=== PATIENT | female | born 1945 | race Caucasian/White ===

== ENCOUNTER 2021-01-19 11:30 | Outpatient (CLI) | payer MEDICARE, OTHER | END 2021-01-19 23:59 | disposition home or self-care (01) | LOC: LAB.N 11:30 | PROVIDERS: ATTEND Family Medicine | DX: R07.0 Pain in throat (principal); Z20.822 Contact with and (suspected) exposure to COVID-19 ==

== ENCOUNTER 2021-02-09 11:10 | Outpatient (CLI) | payer MEDICARE ==
--- NOTE | 2021-02-23 13:21 | Mammography Report ---
BILATERAL DIGITAL SCREENING MAMMOGRAM 3D/2D: 02/09/2021 CLINICAL: Routine screening. Comparison is made to exam dated: 02/21/2016 mammogram - [facility]. There are scattere d fibroglandular elements in both breasts. No significant masses, calcifications, or other findings are seen in either breast. There has been no significant interval change. IMPRESSION: NEGATIVE There is no mammographic evidence of malignancy. A 1 year screening mammogram is recommended. This exam was interpreted at Station ID: [id number]. NOTE: For mammograms, a report in lay terms will be sent to the patient. Approximately 15% of breast malignancies will not be visualized mammographically. In the management of a palpable breast mass, a negative mammogram must not discourage biopsy of a clinically suspicious lesion. Electronically Signed By: Myriam larson/nathalie:02/22/2021 17:20:55 ACR BI-RADS Category 1: Negative 3341F PARENCHYMAL PATTERN: (A) - The breast(s) demonstrate(s) scattered fibroglandular densities. BI-RADS CATEGORY: (1) - 1 RECOMMENDATION: (ANNUAL) - Recommend routine annual screening mammography. [id number] 1 year screening LATERALITY: (B)
== END 2021-02-09 11:11 | disposition home or self-care (01) ==
LOC: DI.N 11:10
DX: Z12.31 Encounter for screening mammogram for malignant neoplasm of breast (principal)

== ENCOUNTER 2021-10-05 12:39 | Outpatient (CLI) | payer MEDICARE ==
--- NOTE | 2021-10-05 17:29 | DEXA Report ---
PROCEDURE: Dexa Spine and/or Hip INDICATIONS: POST MENOPAUSAL TECHNIQUE: Dual energy x-ray absorptiometry (DXA) was performed on a [employer] System. Regions measur ed are the AP Spine, femoral neck, and if needed forearm. COMPARISON: None. FINDINGS: Lumbar Spine: Bone Mineral Density 1.395 g/cm/cm,T score 1.8, normal Left Hip: Bone Mineral Density 1.012 g/cm/cm,T score 0.0, normal Left Femoral Neck: Bone Mineral Density 1.010 g/cm/cm, T score -0.2, normal (T score greater or equal to -1.0: NORMAL) (T score from -1.1 to -2.4: OSTEOPENIA) (T score less than or equal to -2.5 to: OSTEOPOROSIS) Impression: Normal bone mineral density. Patients with diagnosis of osteoporosis or osteopenia should have regular bone mineral density assess ment. For those eligible for Medicare, routine testing is allowed once every 2 years. Testing frequ ency can be increased for patients who have rapidly progressing disease or for those who are receivin g medical therapy to restore bone mass. Reviewed by: Madyson Dsouza MD, PhD on 10/05/2021 5:27 PM PDT Approved by: Madyson Dsouza MD, PhD on 10/05/2021 5:27 PM PDT Station ID: [id number]
== END 2021-10-05 12:40 | disposition home or self-care (01) ==
LOC: DI 12:39
PROVIDERS: ATTEND Internal Medicine
DX: Z78.0 Asymptomatic menopausal state (principal)

== ENCOUNTER 2022-12-06 17:22 | Emergency (ER) | payer MEDICARE ==
[2022-12-06] MEDS ORDERED: SODIUM CHLORIDE 0.9% 1,000 ML IV STA (18:11)
--- NOTE | 2022-12-06 18:13 | ED Physician Documentation ---
History of Present Illness - Stated complaint Stated Complaint: VOMITING - Chief complaint Chief Complaint: General - History obtained from History obtained from: Patient - Additonal information Additional information: 77-year-old woman with longstanding type 2 diabetes treated with metformin, hypertension, hyperlipidemia. For the last 3 months she has been dealing with heartburn that is generally getting worse and now for the last 3 weeks she vomits after she eats. She vomits just a couple of minutes after she eats. It is more phlegm than food products. She has had a little bit of unquantified weight loss with this. She saw her physician and has a pending referral for consultation for potential upper GI, but that is not for 2 weeks. 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 - Present Medications Home Medications: Ambulatory Orders Medication Instructions Recorded Confirmed Atorvastatin Calcium 20 mg PO DAILY 12/06/22 12/06/22 Metoclopramide [Reglan] 10 mg PO Q6H PRN #20 tablet 12/06/22 lisinopriL [Lisinopril] 10 mg PO DAILY 12/06/22 12/06/22 metFORMIN [Glucophage] 500 mg PO DAILY 12/06/22 12/06/22 - Allergies Allergies/Adverse Reactions: Allergies Allergy/AdvReac Type Severity Reaction Status Date / Time No Known Drug Allergies Allergy Verified 12/06/22 17:43 - Social History Does the pt smoke?: No Smoking Status: Never smoker Does the pt drink ETOH?: No Does the pt have substance abuse?: No - Immunizations Immunizations are current?: Yes - POLST Patient has POLST: No PD ED PE NORMAL - Vitals Vital signs reviewed: Yes - General General: Alert and oriented X 3, No acute distress - Cardiac Cardiac: RRR, No murmur - Respiratory Respiratory: No respiratory distress, Clear bilaterally - Abdomen Abdomen: Non tender - Neuro Neuro: Alert and oriented X 3, Normal speech Results - Vitals Vitals: Vital Signs - 24 hr 12/06/22 17:35 Temperature 36.8 C Heart Rate 95 Respiratory 20 Rate Blood Pressure 115/69 O2 Saturation 95 Oxygen O2 Source Room air - Labs Labs: Laboratory Tests 12/06/22 12/06/22 18:25 18:25 WBC 10.7 RBC 5.01 Hgb 14.8 Hct 43.2 MCV 86.2 MCH 29.5 MCHC 34.3 RDW 11.9 L Plt Count 435 MPV 9.2 Neut # (Auto) 6.1 Lymph # (Auto) 3.7 H [place] # (Auto) 0.8 Eos # (Auto) 0.1 Baso # (Auto) 0.0 Absolute Nucleated RBC 0.00 Nucleated RBC % 0.0 Sodium 136 Potassium 4.0 Chloride 101 Carbon Dioxide 24 Anion Gap 11.0 BUN 24 H Creatinine 1.0 Estimated GFR (MDRD) 54 L Glucose 221 H Calcium 9.7 Total Bilirubin 1.8 H AST 18 ALT 21 Alkaline Phosphatase 76 Total Protein 8.0 Albumin 4.4 Globulin 3.6 Albumin/Globulin Ratio 1.2 PD Medical Decision Making - ED course ED course: 77-year-old woman with worsening vomiting that is immediately postprandial which is a pattern concerning for esophageal issue and CT imaging was done tonight demonstrating esophageal thickening which is concerning for malignancy. This was discussed with patient and daughter at the bedside. Also incidental pulmonary nodule discussed. She was feeling much better after the administration of of IV fluids and Reglan and passed a p.o. challenge here. Departure - Departure Disposition: 01 Home, Self Care Clinical Impression: Vomiting, Pulmonary nodule Condition: Good Prescriptions: Metoclopramide [Reglan] 10 mg PO Q6H PRN #20 tablet PRN Reason: nausea or headache Comments: I sent your prescription electronically to [facility] in [place]. I wrote an email to Drs. Au and Alexus to try to expedite your EGD. Until then I would probably be doing very soft diet. Return if worse. You might touch base with Dr. Au's office tomorrow or Saturday. Incidentally you have a 4 mm pulmonary nodule. Radiologist recommends repeat CT scanning in 1 year.
[2022-12-06 18:33] LABS: BASOPHILS % (AUTO) 0.4 %; EOSINOPHILS # (AUTO) 0.1 10^3/uL (0.0-0.7); EOSINOPHILS % (AUTO) 0.7 %; HCT - HEMATOCRIT 43.2 % (37.0-47.0); HGB - HEMOGLOBIN 14.8 g/dL (12.0-16.0); LYMPHOCYTES # (AUTO) 3.7 10^3/uL (1.5-3.5); LYMPHOCYTES % (AUTO) 34.7 %; MEAN CORPUSCULAR HEMOGLOBIN 29.5 pg (27.0-31.0); MEAN CORPUSCULAR HGB CONC 34.3 g/dL (32.0-36.0); MEAN CORPUSCULAR VOLUME 86.2 fL (81.0-99.0); MEAN PLATELET VOLUME 9.2 fL (7.9-10.8); MONOCYTES # (AUTO) 0.8 10^3/uL (0.0-1.0); MONOCYTES % (AUTO) 7.6 %; NEUTROPHILS # (AUTO) 6.1 10^3/uL (1.5-6.6); NEUTROPHILS % (AUTO) 56.3 %; PLT - PLATELET COUNT 435 10^3/uL (130-450); RED BLOOD COUNT 5.01 10^6/uL (4.20-5.40); RED CELL DISTRIBUTION WIDTH 11.9 % (12.0-15.0); WHITE BLOOD COUNT 10.7 x10^3/uL (4.8-10.8)
[2022-12-06] MEDS: METOCLOPRAMIDE 10 MG/2 ML VIAL IVP STA ×2 (18:33→18:37)
[2022-12-06 18:41] LABS: ALBUMIN 4.4 g/dL (3.2-5.5); ALBUMIN/GLOBULIN RATIO 1.2 (1.0-2.2); BILIRUBIN,TOTAL 1.8 mg/dL (0.2-1.0); CALCIUM 9.7 mg/dL (8.5-10.3)
[2022-12-06] MEDS ORDERED: iohexoL-300 100 ML VIAL ONE (18:49)
--- NOTE | 2022-12-06 19:17 | CT Report ---
PROCEDURE: CHEST W INDICATIONS: IV + a swig of PO just prior to CT, vomiting CONTRAST: 100mL Omni 300 TECHNIQUE: After the administration of intravenous contrast, 1 mm axial images were acquired from the pulmonary apices through the posterior costophrenic angles. Axial 5 mm soft tissue kernel reconstructions were performed as well as 8 mm axial MIP and coronal and sagittal 5 mm reformations. For radiation dose reduction, the following was used: automated exposure control, adjustment of mA and/or kV according to patient size. COMPARISON: None. FINDINGS: Image quality: Excellent. Lungs and pleura: No consolidation. No pleural effusions. No pneumothorax. 4 mm nodule within the ri ght anterior lung base. Mediastinum: Heart size is normal. No pericardial effusion. No large vessel abnormality. No mediastin al adenopathy by size criteria. Severe thickening of the distal esophagus. Chest wall and lower neck: Thyroid is unremarkable. No axillary or supraclavicular adenopathy by size . Bones: No aggressive osseous abnormality. Upper Abdomen: Unremarkable. IMPRESSION: 1. Distal esophageal thickening, worrisome for malignancy. Further assessment with endoscopy is recom mended. 2. Right lung base nodule. Follow-up is recommended as below. Solid nodules Solitary nodule size: <6 mm *low risk patients: no follow-up needed *high risk patients: optional CT at 12 months Solitary nodule size: 6-8 mm *low risk patients: follow-up at 6-12 months, then consider further follow-up at 18-24 months *high risk patients: initial follow-up CT at 6-12 months and then at 18-24 months if no change Solitary nodule size: >8 mm *either low or high risk patients *consider follow-up CT at 3 months, and/or CT-PET, and/or biopsy Multiple nodules size: <6 mm *low risk patients: no routine follow-up *high risk patients: optional CT at 12 months Multiple nodules size: 6-8 mm *low risk patients: follow-up at 3-6 months, then consider further follow-up at 18-24 months *high risk patients: follow-up at 3-6 months, then at 18-24 months if no change Multiple nodules size: >8 mm *low risk patients: follow-up at 3-6 months, then consider further follow-up at 18-24 months *high risk patients: follow-up at 3-6 months, then at 18-24 months if no change Subsolid nodules Solitary pure ground-glass nodule *nodule size <6mm *no CT follow-up required *nodule size "e6mm *follow up CT at 6-12 months, then every 2 years until 5 years Solitary part-solid nodule *nodule size <6mm *no CT follow-up required *nodule size "e6mm *follow-up CT at 3-6 months *if unchanged, and solid component remains <6mm, then annual follow-up for 5 years Multiple subsolid nodules *nodule size <6mm *follow-up CT at 3-6 months *consider further follow-up at 2 and 4 years if stable *nodule size "e6mm *follow-up CT at 3-6 months subsequent management based on the most suspicious nodule(s) Reviewed by: Jessica Rodriguez MD on 12/06/2022 7:16 PM PDT Approved by: Jessica Rodriguez MD on 12/06/2022 7:16 PM PDT Station ID: [id number]
--- NOTE | 2022-12-06 19:19 | CT Report ---
PROCEDURE: ABDOMEN/PELVIS W INDICATIONS: IV only, vomiting CONTRAST: 100mL Omni 300 TECHNIQUE: After the administration of intravenous contrast, 5 mm thick sections acquired from the diaphragms to the symphysis. 5 mm thick coronal and sagittal reformats were acquired. For radiation dose reducti on, the following was used: automated exposure control, adjustment of mA and/or kV according to thom ent size. COMPARISON: FINDINGS: Image quality: Excellent. Lung bases and heart: Unremarkable. Liver: No solid mass. Gallbladder and biliary tree: Within normal limits Spleen: No splenomegaly. Pancreas: No pancreatic ductal dilation. Adrenals: No adrenal nodule. Kidneys and ureters: No hydronephrosis. No renal cystic lesion which requires follow up. No solid mas s. Bowel and peritoneum: Severe thickening of distal esophagus 33 mm lipoma within the hepatic flexure o f colon. No bowel distension. No pathologic free fluid. Appendix not seen. No evidence of appendiciti s. Lymph nodes: No central or retroperitoneal adenopathy. Vessels: No infrarenal aortic aneurysm. PELVIS Reproductive organs: Unremarkable. Bladder: No abnormal wall thickening, accounting for underdistension. Pelvic lymph nodes: No pelvic adenopathy by size criteria. Bones: No aggressive osseous abnormality. Other: No significant ventral or inguinal hernia. IMPRESSION: 1. Distal esophageal thickening. Further assessment with endoscopy is recommended to assess for neopl asm. 2. Colonic lipoma. Reviewed by: Jessica Rodriguez MD on 12/06/2022 7:18 PM PDT Approved by: Jessica Rodriguez MD on 12/06/2022 7:18 PM PDT Station ID: [id number]
[2022-12-06 20:02] VITALS: BP 118/77
[2022-12-07] MEDS ORDERED: iohexoL-300 100 ML VIAL IVP ONE (00:09)
== END 2022-12-06 19:59 | disposition home or self-care (01) ==
LOC: ED 17:22
DX: R11.2 Nausea with vomiting, unspecified (principal); R91.1 Solitary pulmonary nodule; I10 Essential (primary) hypertension; E11.9 Type 2 diabetes mellitus without complications; Z79.84 Long term (current) use of oral hypoglycemic drugs
CPT/HCPCS: 36415; 71260; 74177; 80053; 85025; 99283; 99284; J2765; Q9967

== ENCOUNTER 2022-12-13 06:16 | Day surgery (SDC) | payer MEDICARE ==
[2022-12-13] MEDS ORDERED: LACTATED RINGERS 1,000 ML IV ONE ×2 (06:32→08:08)
[2022-12-13] MEDS ORDERED: PROPOFOL 200 MG/20 ML VIAL IVP ONE ×2 (07:05→09:15)
[2022-12-13] MEDS ORDERED: LIDOCAINE-MPF 2% 5 ML VIAL ONE (07:06)
--- NOTE | 2022-12-13 07:13 | ANESTHESIA ---
Pre-Anesthesia VS, & Labs - Diagnosis GERD - Procedure EGD Vital Signs: Temp Pulse Resp BP Pulse Ox O2 Flow Rate 35.9 C L 101 H 16 127/84 H 96 0 12/13/22 06:42 12/13/22 06:42 12/13/22 06:42 12/13/22 06:42 12/13/22 06:42 12/13/22 06:42 Height: 5 ft 4 in Weight (kg): 81 kg Body Mass Index: 30.6 BMI Classification: Obese - NPO >8 hours - Is Patient ?: No - Lab Results Current Lab Results: Laboratory Tests 12/13/22 07:02: POC Whole Bld Glucose 222 H Home Medications and Allergies Home Medications: Ambulatory Orders Melatonin/Pyridoxine [Melatonin 5 mg Tablet] 1 each PO HS PRN 12/12/22 Montelukast [Singulair] 10 mg PO DAILY 12/12/22 Fluticasone 44 Mcg [Flovent] 2 puffs INH BID 12/13/22 Omeprazole 20 mg PO DAILY 12/13/22 Atorvastatin Calcium 20 mg PO DAILY 12/06/22 lisinopriL [Lisinopril] 10 mg PO DAILY 12/06/22 metFORMIN [Glucophage] 500 mg PO DAILY 12/06/22 Melatonin/Pyridoxine [Melatonin 5 mg Tablet] 1 each PO HS PRN 12/12/22 Montelukast [Singulair] 10 mg PO DAILY 12/12/22 Fluticasone 44 Mcg [Flovent] 2 puffs INH BID 12/13/22 Omeprazole 20 mg PO DAILY 12/13/22 Allergies/Adverse Reactions: Allergies Allergy/AdvReac Type Severity Reaction Status Date / Time No Known Drug Allergies Allergy Verified 12/13/22 06:45 Anes History & Medical History - Anesthetic History Anesthesia Complications: reports: No previous complications Family history of Anesthesia Complications: Denies Family history of Malignant Hyperthermia: Denies - Medical History Cardiovascular: reports: Hypertension, High cholesterol Pulmonary: reports: None, Asthma Gastrointestinal: reports: GERD Urinary: reports: None, Incontinence Neuro: reports: None Musculoskeletal: reports: None Endocrine/Autoimmune: reports: Type 2 diabetes Blood Disorders: reports: None Skin: reports: None Smoking Status: Never smoker Psychosocial: reports: No issues indicated History of Cancer?: No - Surgical History Gynecologic: reports: Hysterectomy Exam General: Alert, Oriented x3, Cooperative Dental: Dentures full Upper Mouth Openin Fingerbreadth Neck Mobility: Normal Mallampati classification: II Thyromental Distance: 4-6 cm Respiratory: Lungs clear Cardiovascular: Regular rate Plan Anesthesia Type: General, Total IV Consent for Procedure(s) Verified and Reviewed: Yes Code Status: Attempt Resuscitation ASA classification: 2-Mild systemic disease Is this case an emergency?: No
--- NOTE | 2022-12-13 07:24 | HISTORY & PHYSICAL EXAMINATION ---
Chief Complaint - Chief Complaint Chief Complaint: trouble swallowing History of Present Illness - History Obtained From Records Reviewed: yes History obtained from: pt Exam Limitations: none - History of Present Illness HPI Comment/Other: progressive trouble swallowing. possible narrowing esophagus by ct. past occasional use of tums. taking omeprazole daily last 2 weeks. 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 PHYSICIST: reports: Hysterectomy - POLST Patient has POLST: No Meds/Allgy - Home Medications Home Medications: Ambulatory Orders Medication Instructions Recorded Confirmed Atorvastatin Calcium 20 mg PO DAILY 12/06/22 12/12/22 Metoclopramide [Reglan] 10 mg PO Q6H PRN #20 tablet 12/06/22 12/12/22 lisinopriL [Lisinopril] 10 mg PO DAILY 12/06/22 12/12/22 metFORMIN [Glucophage] 500 mg PO DAILY 12/06/22 12/12/22 Melatonin/Pyridoxine [Melatonin 5 1 each PO HS PRN 12/12/22 12/12/22 mg Tablet] Montelukast [Singulair] 10 mg PO DAILY 12/12/22 12/12/22 Fluticasone 44 Mcg [Flovent] 2 puffs INH BID 12/13/22 12/13/22 Omeprazole 20 mg PO DAILY 12/13/22 12/13/22 - Allergies Allergies/Adverse Reactions: Allergies Allergy/AdvReac Type Severity Reaction Status Date / Time No Known Drug Allergies Allergy Verified 12/13/22 06:45 Review of Systems - Other Findings Other Findings: 10 pt ros as above otherwise unremarkable Exam - Vital Signs Vital Signs: Vital Signs x48h Temp Pulse Resp BP Pulse Ox O2 Flow Rate 12/13/22 06:42 35.9 C L 101 H 16 127/84 H 96 0 - Physical Exam General Appearance: positive: No acute distress, Alert Eyes Bilateral: positive: PERRL, EOMI ENT: positive: No signs of dehydration Neck: positive: No JVD, Trachea midline Respiratory: positive: No respiratory distress Cardiovascular: positive: Regular rate & rhythm Abdomen: positive: No distention Neurologic/Psychiatric: positive: Oriented x3 Conclusion/Plan - Problem List (1) Vomiting Conclusion/Plan: plan egd with possible dilation. parq held and consent obtained
[2022-12-13] MEDS ORDERED: ePHEDrine 50 MG/ML VIAL IVP ONE (08:16)
[2022-12-13] MEDS ORDERED: ONDANSETRON 4 MG/2 ML VIAL ONE (08:48)
[2022-12-13 09:13] VITALS: BP 126/69
--- NOTE | 2022-12-13 15:54 | ANESTHESIA POST OP EVALUATION ---
Anesthesia Post Eval - Post Anesthesia Eval Vitals: Last Vital Signs Temp 36.0 C L 12/13/22 09:09 Pulse 80 12/13/22 09:09 Resp 16 12/13/22 09:09 BP 126/69 12/13/22 09:09 Pulse Ox 100 12/13/22 09:09 O2 Flow Rate 0 12/13/22 06:42 CV Function Including HR & BP: Stable Pain Control: Satisfactory Nausea & Vomiting: Negative Mental Status: Baseline Respiratory Status: Airway Patent Hydration Status: Satisfactory Anesthesia Complications: None
== END 2022-12-13 06:17 | disposition home or self-care (01) ==
LOC: SDS 06:16
PROVIDERS: ATTEND Surgery
PROC: 0DB38ZX Excision of Lower Esophagus, Via Natural or Artificial Opening Endoscopic, Diagnostic (ICD-10-PCS; principal; 2022-12-13 07:30)
DX: K22.710 Barrett's esophagus with low grade dysplasia (principal); K21.9 Gastro-esophageal reflux disease without esophagitis; K22.2 Esophageal obstruction; R11.10 Vomiting, unspecified; I10 Essential (primary) hypertension; E11.9 Type 2 diabetes mellitus without complications; E66.9 Obesity, unspecified; J45.909 Unspecified asthma, uncomplicated; Z68.30 Body mass index [BMI] 30.0-30.9, adult; Z79.84 Long term (current) use of oral hypoglycemic drugs
CPT/HCPCS: 43239; 43249; J7120